=== PATIENT | male | born 1950 | race Hispanic/Latino ===

== ENCOUNTER 2016-11-07 14:25 | Emergency (ER) | payer MEDICARE, OTHER ==
[2016-11-07 14:38] VITALS: TEMP 98.7; BMI 24.0
--- NOTE | 2016-11-07 14:46 | ED PDOC ---
Arrival/HPI - General Chief Complaint: GI Problem Time Seen by Provider: 11/07/16 14:45 Historian: Patient - History of Present Illness Narrative History of Present Illness (Text): 11/07/16 14:46 This 66 yo male with pmh basal cell carcinoma, htn, hyperlipidemia, hemorrhoid, who takes 81mg ASA daily, presents to this ED c/o rectal bleeding x 3 hours. Patient denies other complains. Patient denies rectal trauma, or pain. Time/Duration: 1-3 hours Context: Home Past Medical History - Provider Review Nursing Documentation Reviewed: Yes - Infectious Disease Hx of Infectious Diseases: None - Cardiac Hx Hypertension: Yes - Pulmonary Hx Respiratory Disorders: No - Neurological Hx Neurological Disorder: No - HEENT Hx HEENT Disorder: No - Renal Hx Renal Disorder: No - Endocrine/Metabolic Hx Endocrine Disorders: No - Hematological/Oncological Hx Blood Disorders: No - Integumentary Hx Dermatological Disorder: No - Musculoskeletal/Rheumatological Hx Musculoskeletal Disorders: No - Gastrointestinal Hx Gastrointestinal Disorders: No - Genitourinary/Gynecological Hx Genitourinary Disorders: No - Psychiatric Hx Psychophysiologic Disorder: No Hx Substance Use: No - Anesthesia Hx Anesthesia: No Hx Anesthesia Reactions: No Hx Malignant Hyperthermia: No Family/Social History - Physician Review Nursing Documentation Reviewed: Yes Family/Social History: No Known Family HX Smoking Status: Current Some Days Smoker Hx Alcohol Use: No Hx Substance Use: No Allergies/Home Meds Allergies/Adverse Reactions: Allergies No Known Allergies Allergy (Verified 04/09/16 14:43) Home Medications: Home Meds Medication Instructions Recorded Confirmed Losartan/Hydrochlorothiazide 11/07/16 [Losartan-Hctz 100-12.5 mg Tab] Metoprolol Tartrate [Lopressor] 25 mg PO 11/07/16 Simvastatin [Zocor] 40 mg PO 11/07/16 Review of Systems - Review of Systems Constitutional: Normal. absent: Fatigue, Weight Change, Fevers Eyes: Normal ENT: Normal Respiratory: Normal Cardiovascular: Normal Gastrointestinal: Other (rectal bleeding) Genitourinary Male: Normal Musculoskeletal: Normal Skin: Normal Neurological: Normal Endocrine: Normal Hemo/Lymphatic: Normal Psychiatric: Normal Physical Exam Vital Signs Temp Pulse Resp BP Pulse Ox 11/07/16 18:24 78 18 144/62 98 11/07/16 17:24 74 18 131/65 98 11/07/16 16:24 79 18 133/69 98 07/07/17 15:40 89 18 135/71 98 11/07/16 14:32 98.7 F 96 H 20 135/76 99 Temperature: Afebrile Blood Pressure: Normal Pulse: Regular Respiratory Rate: Normal Appearance: Positive for: Well-Appearing, Non-Toxic, Comfortable Pain Distress: None Mental Status: Positive for: Alert and Oriented X 3 - Systems Exam Head: Present: Atraumatic, Normocephalic Pupils: Present: PERRL Extroacular Muscles: Present: EOMI Conjunctiva: Present: Normal Mouth: Present: Moist Mucous Membranes Neck: Present: Normal Range of Motion Respiratory/Chest: Present: Clear to Auscultation, Good Air Exchange. No: Respiratory Distress, Accessory Muscle Use Cardiovascular: Present: Regular Rate and Rhythm, Normal S1, S2. No: Murmurs Abdomen: Present: Normal Bowel Sounds. No: Tenderness, Distention, Peritoneal Signs Rectal: Present: Gross Blood, Hemorrhoids, Normal Rectal Tone. No: Rectal Tenderness, Melena Back: Present: Normal Inspection. No: CVA Tenderness Upper Extremity: Present: Normal Inspection, Normal ROM, NORMAL PULSES, Neurovascularly Intact, Capillary Refill < 2s. No: Cyanosis, Edema Lower Extremity: Present: Normal Inspection, NORMAL PULSES, Normal ROM, Neurovascularly Intact, Capillary Refill < 2 s. No: Edema, CALF TENDERNESS Neurological: Present: GCS=15, CN II-XII Intact, Speech Normal, Motor Func Grossly Intact, Normal Sensory Function, Normal Cerebellar Funct, Gait Normal Skin: Present: Warm, Dry, Normal Color. No: Rashes Psychiatric: Present: Alert, Oriented x 3 Medical Decision Making ED Course and Treatment: 11/07/16 17:[address] Toribio GI doctor you stated that patient can be discharge home, since patient does not want to stay admitted, but if rectal bleeding return, he will need to return to ED immediately for admission. He asked me to call PMD. He recommended Sitz bath 11/07/16 18:05 Patient understood that if rectal bleeding returns, he will need to come back to emergency immediately Re-evaluation Time: 18:00 Reassessment Condition: Re-examined, Improved - Lab Interpretations Lab Results: 11/07/16 17:00 11/07/16 17:00 Lab Results 11/07/16 17:00: Blood Type O POSITIVE, Antibody Screen Negative, BBK History Checked No verified bt 11/07/16 17:00: PT 11.0, INR 1.02, APTT 26.8 11/07/16 17:00: Sodium 141, Potassium 4.5, Chloride 105, Carbon Dioxide 23, Anion Gap 18, BUN 30 H, Creatinine 1.3, Est GFR ( Amer) > 60, Est GFR ( Non-Af Amer) 55, Random Glucose 95, Calcium 9.7, Total Bilirubin 0.5, AST 23, ALT 38, Alkaline Phosphatase 79, Total Protein 7.7, Albumin 4.4, Globulin 3.3, Albumin/Globulin Ratio 1.3 11/07/16 17:00: WBC 10.4 D, RBC 3.73, Hgb 11.5 L, Hct 35.4 L, MCV 94.9, MCH 30.8, MCHC 32.5, RDW 13.1, Plt Count 239, MPV 9.4, Gran % 85.6 H, Lymph % (Auto ) 10.6 L, [place] % (Auto) 3.6, Eos % (Auto) 0.1 L, Baso % (Auto) 0.1, Gran # 8.92 H, Lymph # 1.1 L, [place] # 0.4, Eos # 0.0, Baso # 0.01 I have reviewed the lab results: Yes Interpretation: No clinic. lab abnormalty (mild anemia. mild elevated BUN) Disposition/Present on Arrival - Present on Arrival Any Indicators Present on Arrival: No History of DVT/PE: No History of Uncontrolled Diabetes: No Urinary Catheter: No History of Decub. Ulcer: No History Surgical Site Infection Following: None - Disposition Have Diagnosis and Disposition been Completed?: Yes Diagnosis: External hemorrhoid, bleeding, Anemia Disposition: HOME/ ROUTINE Disposition Time: 18:01 Patient Plan: Discharge Condition: GOOD Discharge Instructions (ExitCare): Hemorrhoids (ED), Sitz Bath (GEN) Additional Instructions: Call Dr. Toribio GI doctor office on Thursday for follow up visit. If rectal bleeding return to return to emergency immediately. Take medication as instructed. Prescriptions: Docusate Sodium [Colace] 100 mg PO BID #60 capsule Hydrocortisone 2.5% (Rectal) [Anusol-HC] 1 applic [place] BID #1 tube Referrals: Ritesh Toribio MD [Medical Doctor] - Follow up with primary Maulik Hernandez JD, MD [Staff Provider] - Follow up with primary
[2016-11-07 15:41] VITALS: RESP 18; O2SAT 98
[2016-11-07 17:17] LABS: BASO # 0.01 K/mm3 (0.0-2.0); BASO % 0.1 % (0.0-3.0); EOS % 0.1 % (1.5-5.0); GRAN # 8.92 (1.4-6.5); GRAN % 85.6 % (50.0-68.0); HEMOGLOBIN 11.5 gm/dL (14.0-18.0); LYMPH # 1.1 (1.2-3.4); LYMPH % 10.6 % (22.0-35.0); MEAN CELL VOLUME 94.9 fL (80.0-105.0); MEAN CORPUSCULAR HEMOGLOBIN 30.8 pg (25.0-35.0); MEAN CORPUSCULAR HGB CONC 32.5 g/dl (31.0-37.0); MEAN PLATELET VOLUME 9.4 fl (7.0-11.0); MONO # 0.4 (0.1-0.6); MONO % 3.6 % (1.0-6.0); PLATELET COUNT 239 10^3/uL (120.0-450.0); RBC 3.73 10^6/uL (3.5-6.1); RED CELL DISTRIBUTION WIDTH 13.1 % (11.5-14.5); WHITE BLOOD COUNT 10.4 10^3/ul (4.5-11.0)
[2016-11-07 17:25] LABS: ALB/GLOB RATIO 1.3 (1.1-1.8); ALBUMIN 4.4 g/dL (3.0-4.8); ALT/SGPT 38 U/L (7-56); AST/SGOT 23 U/L (15-59); BLOOD UREA NITROGEN 30 mg/dL (7-21); CALCIUM 9.7 mg/dL (8.4-10.5); GFR AFRICAN-AMERICAN > 60; GFR NON-AFRICAN AMERICAN 55
[2016-11-07 17:28] LABS: INR 1.02 (0.93-1.08); PARTIAL THROMBOPLASTIN TIME 26.8 Seconds (23.7-30.8)
[2016-11-07 18:24] VITALS: BP 144/62; PULSE 78
--- NOTE | 2016-11-07 23:43 | CP.PCM.CON ---
History of Present Illness - History of Present Illness History of Present Illness: This paient Past Patient History - Infectious Disease Hx of Infectious Diseases: None - Past Social History Smoking Status: Current Some Days Smoker - CARDIAC Hx Hypertension: Yes - PULMONARY Hx Respiratory Disorders: No - NEUROLOGICAL Hx Neurological Disorder: No - HEENT Hx HEENT Problems: No - RENAL Hx Chronic Kidney Disease: No - ENDOCRINE/METABOLIC Hx Endocrine Disorders: No - HEMATOLOGICAL/ONCOLOGICAL Hx Blood Disorders: No - INTEGUMENTARY Hx Dermatological Problems: No - MUSCULOSKELETAL/RHEUMATOLOGICAL Hx Musculoskeletal Disorders: No - GASTROINTESTINAL Hx Gastrointestinal Disorders: No - GENITOURINARY/GYNECOLOGICAL Hx Genitourinary Disorders: No - PSYCHIATRIC Hx Psychophysiologic Disorder: No Hx Substance Use: No - SURGICAL HISTORY Hx Surgeries: No - ANESTHESIA Hx Anesthesia: No Hx Anesthesia Reactions: No Hx Malignant Hyperthermia: No Meds Home Medications: Home Medication List Medication Instructions Recorded Confirmed Type Docusate Sodium [Colace] 100 mg PO BID #60 capsule 11/07/16 Rx Hydrocortisone 2.5% (Rectal) 1 applic [place] BID #1 tube 11/07/16 Rx [Anusol-HC] Allergies/Adverse Reactions: Allergies Allergy/AdvReac Type Severity Reaction Status Date / Time No Known Allergies Allergy Verified 04/09/16 14:43 Results - Vital Signs Recent Vital Signs: Last Vital Signs Temp 98.7 F 11/07/16 14:32 Pulse 78 11/07/16 18:24 Resp 18 11/07/16 18:24 BP 144/62 11/07/16 18:24 Pulse Ox 98 11/07/16 18:24 - Labs Result Diagrams: 11/07/16 17:00 11/07/16 17:00 Labs: Laboratory Results - last 24 hr 11/07/16 11/07/16 11/07/16 17:00 17:00 17:00 WBC 10.4 D RBC 3.73 Hgb 11.5 L Hct 35.4 L MCV 94.9 MCH 30.8 MCHC 32.5 RDW 13.1 Plt Count 239 MPV 9.4 Gran % 85.6 H Lymph % (Auto) 10.6 L [place] % (Auto) 3.6 Eos % (Auto) 0.1 L Baso % (Auto) 0.1 Gran # 8.92 H Lymph # 1.1 L [place] # 0.4 Eos # 0.0 Baso # 0.01 PT 11.0 INR 1.02 APTT 26.8 Sodium 141 Potassium 4.5 Chloride 105 Carbon Dioxide 23 Anion Gap 18 BUN 30 H Creatinine 1.3 Est GFR ( Amer) > 60 Est GFR (Non-Af Amer) 55 Random Glucose 95 Calcium 9.7 Total Bilirubin 0.5 AST 23 ALT 38 Alkaline Phosphatase 79 Total Protein 7.7 Albumin 4.4 Globulin 3.3 Albumin/Globulin Ratio 1.3 Blood Type Antibody Screen BBK History Checked 11/07/16 17:00 WBC RBC Hgb Hct MCV MCH MCHC RDW Plt Count MPV Gran % Lymph % (Auto) [place] % (Auto) Eos % (Auto) Baso % (Auto) Gran # Lymph # [place] # Eos # Baso # PT INR APTT Sodium Potassium Chloride Carbon Dioxide Anion Gap BUN Creatinine Est GFR ( Amer) Est GFR (Non-Af Amer) Random Glucose Calcium Total Bilirubin AST ALT Alkaline Phosphatase Total Protein Albumin Globulin Albumin/Globulin Ratio Blood Type O POSITIVE Antibody Screen Negative BBK History Checked No verified bt Assessment & Plan - Assessment and Plan (Free Text) Assessment:
== END 2016-11-07 18:26 | disposition home or self-care (01) ==
LOC: ED 14:25
DX: K64.4 Residual hemorrhoidal skin tags (principal); D64.9 Anemia, unspecified; I10 Essential (primary) hypertension; Z79.82 Long term (current) use of aspirin; Z72.0 Tobacco use